=== PATIENT | female | born 1990 | race Caucasian/White ===

== ENCOUNTER 2017-10-11 19:13 | Emergency (ER) | payer BC, OTHER ==
[2017-10-11] MEDS ORDERED: Ketorolac 60 MG/2 ML SDV IM ONE (19:26)
--- NOTE | 2017-10-11 19:29 | EDM.PDOC ---
ED HPI GENERAL MEDICAL PROBLEM - General Chief Complaint: Back Pain or Injury Stated Complaint: LOWER BACK PAIN/FALL Time Seen by Provider: 10/11/17 19:23 - History of Present Illness INITIAL COMMENTS - FREE TEXT/NARRATIVE: HISTORY AND PHYSICAL: History of present illness: The patient is a 27-year-old female who was in her usual state of good health without any systemic complaints when she slipped on the ice at about 2:00 this afternoon and fell onto her buttocks. She said she hit her head but did not pass out or black out and has no head neck or upper back pain but complains of pain at her tailbone and she is worried that it's broken. She has no radiation of the pain into her legs and has had no bowel or bladder disturbances since his injury. She has no other complaints and took Tylenol prior to coming here. The pain does not localize right or left but it is in the midline. She has not noticed any bruising to the area. Review of systems: As per history of present illness and below otherwise all systems reviewed and negative. Past medical history: As per history of present illness and as reviewed below otherwise noncontributory. Surgical history: As per history of present illness and as reviewed below otherwise noncontributory. Social history: No reported history of drug or alcohol abuse. Family history: As per history of present illness and as reviewed below otherwise noncontributory. Physical exam: Gen.: Well-developed overweight female who is nontoxic and vital signs are reviewed by me. She is uncomfortable sitting in the chair easily and ambulates easily in the ED. HEENT: Atraumatic, normocephalic, negative for conjunctival pallor or scleral icterus, mucous membranes moist, throat clear, neck supple, nontender, trachea midline. Lungs: Clear to auscultation, breath sounds equal bilaterally, chest nontender. Heart: S1S2, regular rate and rhythm no overt murmurs Abdomen: Soft, nondistended, nontender. NABS Negative for costovertebral tenderness. Pelvis: Stable nontender. There is no specific posterior pelvis pain or SI joint pain on palpation Genitourinary: Deferred. Rectal: Deferred. Extremities: Atraumatic, negative for cords or calf pain. Neurovascular unremarkable. Full range of motion without defects or deficits Neuro: Awake, alert, oriented. Cranial nerves II through XII unremarkable. Cerebellum unremarkable. Motor and sensory unremarkable throughout. Exam nonfocal. Back: There are no midline step-offs tenderness or defects of the thoracic or lumbar spine but there is specific tenderness at palpation of the coccygeal area without localization right or left. There is no overt bruising erythema or ecchymosis appreciated. Diagnostics: X-ray sacrum and coccyx Therapeutics: Toradol Impression: Fall, coccyx contusion Definitive disposition and diagnosis as appropriate pending reevaluation and review of above. tailbone Pain Score (Numeric/FACES): 7 - Related Data Allergies Allergy/AdvReac Type Severity Reaction Status Date / Time Penicillins Allergy Other Verified 08/11/16 21:07 Home Meds: Home Meds Desogestrel-Ethinyl Estradiol [Apri 28 Day Tablet] 1 each PO DAILY 07/06/16 [ History] FLUoxetine [PROzac] 40 mg PO DAILY 07/06/16 [History] Omeprazole 20 mg PO DAILY 07/06/16 [History] LORazepam [Ativan] 0.5 mg PO ASDIRECTED PRN 10/11/17 [History] Past Medical History HEENT History: Reports: None Cardiovascular History: Reports: None Respiratory History: Reports: None Gastrointestinal History: Reports: GERD Genitourinary History: Reports: Renal Calculus 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 Musculoskeletal History: Reports: None Neurological History: Reports: Migraines Psychiatric History: Reports: Depression Endocrine/Metabolic History: Reports: Obesity/BMI 30+ Hematologic History: Reports: None Immunologic History: Reports: None Oncologic (Cancer) History: Reports: None Dermatologic History: Reports: None - Infectious Disease History Infectious Disease History: Reports: None - Past Surgical History Head Surgeries/Procedures: Reports: None HEENT Surgical History: Reports: Tonsillectomy Cardiovascular Surgical History: Reports: None Musculoskeletal Surgical History: Reports: None Social & Family History - Family History Family Medical History: Noncontributory Oncologic: Reports: Breast - Tobacco Use Smoking Status *Q: Current Every Day Smoker Years of Tobacco use: 2 Packs/Tins Daily: 0.5 - Caffeine Use Caffeine Use: Reports: Tea - Recreational Drug Use Recreational Drug Use: No ED ROS GENERAL - Review of Systems Review Of Systems: ROS reveals no pertinent complaints other than HPI. ED EXAM, GENERAL - Physical Exam Exam: See Below (See dictation) Course - Vital Signs Last Recorded V/S: Last Vital Signs Temp 36.5 C 10/11/17 19:23 Pulse 101 H 10/11/17 19:23 Resp 16 10/11/17 19:23 BP 118/71 10/11/17 19:23 Pulse Ox 95 10/11/17 19:23 - Orders/Labs/Meds Orders: Active Orders 24 hr Category Date Time Status Sacrum Coccyx Min 2V [CR] Stat Exams 10/11/17 19:26 Taken Meds: Medications Discontinued Medications Generic Name Dose Route Start Last Admin Trade Name Benjamin PRN Reason Stop Dose Admin Ketorolac Tromethamine 60 mg 10/11/17 19:26 10/11/17 19:50 Toradol IM 10/11/17 19:27 60 mg ONETIME ONE Administration Departure - Departure Time of Disposition: 20:34 Disposition: Home, Self-Care 01 Condition: Good Clinical Impression: Fall Qualifiers: Encounter type: initial encounter Qualified Code(s): W19.XXXA - Unspecified fall, initial encounter Coccyx contusion Qualifiers: Encounter type: initial encounter Qualified Code(s): S30.0XXA - Contusion of lower back and pelvis, initial encounter - Discharge Information Referrals: Alexandrea Melendrez NP [Primary Care Provider] - Forms: ED Department Discharge Additional Instructions: The following information is given to patients seen in the emergency department who are being discharged to home. This information is to outline your options for follow-up care. We provide all patients seen in our emergency department with a follow-up referral. The need for follow-up, as well as the timing and circumstances, are variable depending upon the specifics of your emergency department visit. If you don't have a primary care physician on staff, we will provide you with a referral. We always advise you to contact your personal physician following an emergency department visit to inform them of the circumstance of the visit and for follow-up with them and/or the need for any referrals to a consulting specialist. The emergency department will also refer you to a specialist when appropriate. This referral assures that you have the opportunity for followup care with a specialist. All of these measure are taken in an effort to provide you with optimal care, which includes your followup. Under all circumstances we always encourage you to contact your private physician who remains a resource for coordinating your care. When calling for followup care, please make the office aware that this follow-up is from your recent emergency room visit. If for any reason you are refused follow-up, please contact the [facility] emergency department at and ask to speak to the emergency department charge nurse. [facility] Primary care- Internal Medicine and Family [address] [address] Use ice to area and try to avoid pressure to the region. Please take stool softeners as sitting on the toilet may be discomforting. Use pain medication as directed and prescribed and you may also add [id number] ibuprofen/Motrin. Call and follow-up in the clinic with either your provider or one of our providers in the next few days for reevaluation further care and return to ER as needed and as discussed - My Orders Last 24 Hours: My Active Orders 10/11/17 19:26 Sacrum Coccyx Min 2V [CR] Stat - Assessment/Plan Last 24 Hours: My Active Orders 10/11/17 19:26 Sacrum Coccyx Min 2V [CR] Stat
[2017-10-11 20:48] VITALS: BP 119/61
--- NOTE | 2017-10-14 10:42 | CR ---
EXAM DATE: 10/11/17 PATIENT'S AGE: 27 Patient: GAY BRAGG Facility: [place], [place] Site . Site : 1990 Study: XRay Spine Sacrum/Coccyx [id number]/9/2018 8:03:46 PM Ordering Physician: Dalia Uriostegui Final Report: INDICATION: Pain after fall on ice. COMPARISON: None. FINDINGS/IMPRESSION: No fractures of the sacrum or coccyx identified. Included bony pelvis appears intact. Sacroiliac joints are unremarkable. Dictated by Marcial Fischer MD @ 10/11/2017 8:09:20 PM Dictated by: Marcial Fischer MD @ 10/11/2017 20:10:10 (Electronic Signature) Report Signed by Proxy. [facility]
== END 2017-10-11 20:45 | disposition home or self-care (01) ==
LOC: MW.ED 19:13
DX: S30.0XXA Contusion of lower back and pelvis, initial encounter (principal); F17.210 Nicotine dependence, cigarettes, uncomplicated; K21.9 Gastro-esophageal reflux disease without esophagitis; F32.9 Major depressive disorder, single episode, unspecified; Z79.899 Other long term (current) drug therapy; Z88.0 Allergy status to penicillin; W00.0XXA Fall on same level due to ice and snow, initial encounter
CPT/HCPCS: 72220; 96372; 99283; J1885

== ENCOUNTER 2018-01-15 15:25 | Emergency (ER) | payer BC ==
[2018-01-15] MEDS ORDERED: Sodium Chloride 0.9% 1,000 ML IV ONE (15:46)
[2018-01-15] MEDS ORDERED: Albuterol/Ipratropium 3.0-0.5 MG/3 ML Neb Soln NEB ONE (15:58)
[2018-01-15] MEDS ORDERED: methylPREDNISolone Sodium Succinate 125 MG/2 ML SDV IVPUSH ONE (15:58)
--- NOTE | 2018-01-15 15:59 | EDM.PDOC ---
ED HPI GENERAL MEDICAL PROBLEM - General Chief Complaint: General Stated Complaint: HARD TIME BREATHING AND DIZZY Time Seen by Provider: 01/15/18 15:45 Source of Information: Reports: Patient History Limitations: Reports: No Limitations - History of Present Illness INITIAL COMMENTS - FREE TEXT/NARRATIVE: HISTORY AND PHYSICAL: History of present illness: Patient is a 27-year-old female who presents to the emergency room today with complaints of shortness of breath, "lung pain", sinus pressure and dizziness. She states she has had these symptoms intermittently over the past month. She has been on Bactrim DS and 2 rounds of Z-Obie without any relief. He eats with her dizziness it is sporadic and is not associated with movement or rest. She denies any fever, chills, chest pain, abdominal pain, nausea, vomiting, diarrhea or constipation. Review of systems: As per history of present illness and below otherwise all systems reviewed and negative. Past medical history: As per history of present illness and as reviewed below otherwise noncontributory. Surgical history: As per history of present illness and as reviewed below otherwise noncontributory. Social history: No reported history of drug or alcohol abuse. Family history: As per history of present illness and as reviewed below otherwise noncontributory. Physical exam: General: Well-developed and well-nourished 27-year-old female. Alert and oriented. Nontoxic appearing and in no acute distress. HEENT: Atraumatic, normocephalic, pupils equal and reactive bilaterally, negative for conjunctival pallor or scleral icterus, mucous membranes moist, throat clear, neck supple, nontender, trachea midline. Frontal/maxillary sinus tenderness with palpation bilaterally. No drooling or trismus noted. No meningeal signs Lungs: Clear to auscultation, breath sounds equal bilaterally, chest nontender. Heart: S1S2, regular rate and rhythm without overt murmur Abdomen: Soft, nondistended, nontender. Negative for masses or hepatosplenomegaly. Negative for costovertebral tenderness. Pelvis: Stable nontender. Genitourinary: Deferred. Rectal: Deferred. Skin: Intact, warm, dry. No lesions or rashes noted. Extremities: Atraumatic, negative for cords or calf pain. Neurovascular unremarkable. Neuro: Awake, alert, oriented. Cranial nerves II through XII unremarkable. Cerebellum unremarkable. Motor and sensory unremarkable throughout. Exam nonfocal. Notes: Routine lab work will be obtained today along with EKG and chest x-ray. Chest x-ray shows no acute pulmonary disease. Lab work is unremarkable with a slightly elevated WBC. Will treat her with doxycycline, Medrol Dosepak and albuterol inhaler for sinusitis and bronchitis. Encouraged her to increase her oral fluids. Supportive care measures were reviewed and discussed. She voices understanding and is agreeable to plan of care. She denies any further questions at this Diagnostics: CBC, CMP, UA, urine , chest x-ray, orthostatic vital signs Therapeutics: The fluid, Solu-Medrol, DuoNeb Impression: Bronchitis Sinusitis Dizziness Plan: 1. Please take your medications as directed. 2. Increase your oral fluids (non-caffienated fluids), especially over the next 1-2 days. You may use [id number] meclizine as needed for dizziness. 3. Follow-up with your primary care provider in the next 1-2 days. Return to the ED as needed and as discussed. Definitive disposition and diagnosis as appropriate pending reevaluation and review of above. Face Pain Score (Numeric/FACES): 6 - Related Data Allergies Allergy/AdvReac Type Severity Reaction Status Date / Time Penicillins Allergy Other Verified 01/15/18 15:45 Home Meds: Home Meds Desogestrel-Ethinyl Estradiol [Apri 28 Day Tablet] 1 each PO DAILY 07/06/16 [ History] FLUoxetine [PROzac] 40 mg PO DAILY 07/06/16 [History] Omeprazole 20 mg PO DAILY 07/06/16 [History] LORazepam [Ativan] 0.5 mg PO ASDIRECTED PRN 10/11/17 [History] Albuterol [Proventil HFA] 2 puff INH Q4H PRN 01/15/18 [History] Past Medical History HEENT History: Reports: None Cardiovascular History: Reports: None Respiratory History: Reports: None Gastrointestinal History: Reports: GERD Genitourinary History: Reports: Renal Calculus 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 Musculoskeletal History: Reports: None Neurological History: Reports: Migraines Psychiatric History: Reports: Depression Endocrine/Metabolic History: Reports: Obesity/BMI 30+ Hematologic History: Reports: None Immunologic History: Reports: None Oncologic (Cancer) History: Reports: None Dermatologic History: Reports: None - Infectious Disease History Infectious Disease History: Reports: None - Past Surgical History Head Surgeries/Procedures: Reports: None HEENT Surgical History: Reports: Tonsillectomy Cardiovascular Surgical History: Reports: None Musculoskeletal Surgical History: Reports: None Social & Family History - Family History Family Medical History: Noncontributory Oncologic: Reports: Breast - Tobacco Use Smoking Status *Q: Current Every Day Smoker Years of Tobacco use: 18 Packs/Tins Daily: 0.2 - Caffeine Use Caffeine Use: Reports: Coffee, Soda, Tea - Recreational Drug Use Recreational Drug Use: No ED ROS GENERAL - Review of Systems Review Of Systems: ROS reveals no pertinent complaints other than HPI. ED EXAM, GENERAL - Physical Exam Exam: See Below (See dictation) Course - Vital Signs Last Recorded V/S: Last Vital Signs Temp 97.2 F 01/15/18 15:47 Pulse 99 01/15/18 15:47 Resp 18 01/15/18 15:47 BP 153/73 H 01/15/18 15:47 Pulse Ox 98 01/15/18 15:47 Orthostatic Blood Pressure [ 137/66 Standing] Orthostatic Blood Pressure [ 163/86 Sitting] Orthostatic Blood Pressure [ 163/77 Supine] - Orders/Labs/Meds Orders: Active Orders 24 hr Category Date Time Status Orthostatic Vital Signs [RC] ASDIRECTED Care 01/15/18 15:46 Active RT Aerosol Therapy [RC] ASDIRECTED Care 01/15/18 15:58 Active Chest 2V [CR] Stat Exams 01/15/18 15:58 Taken HCG QUALITATIVE,URINE [URCHEM] Stat Lab 01/15/18 17:30 Ordered UA W/MICROSCOPIC [URIN] Stat Lab 01/15/18 17:30 Ordered Labs: Laboratory Tests 01/15/18 01/15/18 01/15/18 Range/Units 16:05 16:05 17:30 WBC 11.79 H (4.0-11.0) K/uL RBC 4.52 (4.30-5.90) M/uL Hgb 13.0 (12.0-16.0) g/dL Hct 40.1 (36.0-46.0) % MCV 88.7 (80.0-98.0) fL MCH 28.8 (27.0-32.0) pg MCHC 32.4 (31.0-37.0) g/dL RDW Std Deviation 45.0 (28.0-62.0) fl RDW Coeff of Eda 14 (11.0-15.0) % Plt Count 271 (150-400) K/uL MPV 9.40 (7.40-12.00) fL Neut % (Auto) 73.8 (48.0-80.0) % Lymph % (Auto) 20.9 (16.0-40.0) % [place] % (Auto) 4.6 (0.0-15.0) % Eos % (Auto) 0.4 (0.0-7.0) % Baso % (Auto) 0.3 (0.0-1.5) % Neut # (Auto) 8.7 H (1.4-5.7) K/uL Lymph # (Auto) 2.5 H (0.6-2.4) K/uL [place] # (Auto) 0.5 (0.0-0.8) K/uL Eos # (Auto) 0.1 (0.0-0.7) K/uL Baso # (Auto) 0.0 (0.0-0.1) K/uL Nucleated RBC % 0.0 /100WBC Nucleated RBCs # 0 K/uL Sodium 140 (136-145) mmol/L Potassium 3.7 (3.5-5.1) mmol/L Chloride 104 (98-107) mmol/L Carbon Dioxide 23.5 (21.0-32.0) mmol/L BUN 14 (7.0-18.0) mg/dL Creatinine 0.9 (0.6-1.0) mg/dL Est Cr Clr Drug Dosing 72.95 mL/min Estimated GFR (MDRD) > 60.0 ml/min Glucose 150 H (74-106) mg/dL Calcium 8.5 (8.5-10.1) mg/dL Total Bilirubin 0.2 (0.2-1.0) mg/dL AST 14 L (15-37) IU/L ALT 20 (14-63) IU/L Alkaline Phosphatase 80 (46-116) U/L Total Protein 7.6 (6.4-8.2) g/dL Albumin 3.6 (3.4-5.0) g/dL Globulin 4.0 H (2.0-3.5) g/dL Albumin/Globulin Ratio 0.9 L (1.3-2.8) Urine Color YELLOW Urine Appearance CLEAR Urine pH 6.0 (5.0-8.0) Ur Specific [place] >= 1.030 (1.001-1.035) Urine Protein NEGATIVE (NEGATIVE) mg/dL Urine Glucose (UA) NEGATIVE (NEGATIVE) mg/dL Urine Ketones NEGATIVE (NEGATIVE) mg/dL Urine Occult Blood NEGATIVE (NEGATIVE) Urine Nitrite NEGATIVE (NEGATIVE) Urine Bilirubin NEGATIVE (NEGATIVE) Urine Urobilinogen 0.2 (<2.0) EU/dL Ur Leukocyte Esterase TRACE (NEGATIVE) Urine RBC 0-1 (0-2/HPF) Urine WBC 2-3 (0-5/HPF) Ur Epithelial Cells FEW (NONE-FEW) Urine Bacteria FEW (NEGATIVE) Urine HCG, Qual (NEGATIVE) 01/15/18 Range/Units 17:30 WBC (4.0-11.0) K/uL RBC (4.30-5.90) M/uL Hgb (12.0-16.0) g/dL Hct (36.0-46.0) % MCV (80.0-98.0) fL MCH (27.0-32.0) pg MCHC (31.0-37.0) g/dL RDW Std Deviation (28.0-62.0) fl RDW Coeff of Eda (11.0-15.0) % Plt Count (150-400) K/uL MPV (7.40-12.00) fL Neut % (Auto) (48.0-80.0) % Lymph % (Auto) (16.0-40.0) % [place] % (Auto) (0.0-15.0) % Eos % (Auto) (0.0-7.0) % Baso % (Auto) (0.0-1.5) % Neut # (Auto) (1.4-5.7) K/uL Lymph # (Auto) (0.6-2.4) K/uL [place] # (Auto) (0.0-0.8) K/uL Eos # (Auto) (0.0-0.7) K/uL Baso # (Auto) (0.0-0.1) K/uL Nucleated RBC % /100WBC Nucleated RBCs # K/uL Sodium (136-145) mmol/L Potassium (3.5-5.1) mmol/L Chloride (98-107) mmol/L Carbon Dioxide (21.0-32.0) mmol/L BUN (7.0-18.0) mg/dL Creatinine (0.6-1.0) mg/dL Est Cr Clr Drug Dosing mL/min Estimated GFR (MDRD) ml/min Glucose (74-106) mg/dL Calcium (8.5-10.1) mg/dL Total Bilirubin (0.2-1.0) mg/dL AST (15-37) IU/L ALT (14-63) IU/L Alkaline Phosphatase (46-116) U/L Total Protein (6.4-8.2) g/dL Albumin (3.4-5.0) g/dL Globulin (2.0-3.5) g/dL Albumin/Globulin Ratio (1.3-2.8) Urine Color Urine Appearance Urine pH (5.0-8.0) Ur Specific [place] (1.001-1.035) Urine Protein (NEGATIVE) mg/dL Urine Glucose (UA) (NEGATIVE) mg/dL Urine Ketones (NEGATIVE) mg/dL Urine Occult Blood (NEGATIVE) Urine Nitrite (NEGATIVE) Urine Bilirubin (NEGATIVE) Urine Urobilinogen (<2.0) EU/dL Ur Leukocyte Esterase (NEGATIVE) Urine RBC (0-2/HPF) Urine WBC (0-5/HPF) Ur Epithelial Cells (NONE-FEW) Urine Bacteria (NEGATIVE) Urine HCG, Qual NEGATIVE (NEGATIVE) Meds: Medications Discontinued Medications Generic Name Dose Route Start Last Admin Trade Name Freq PRN Reason Stop Dose Admin Albuterol/Ipratropium 3 ml 01/15/18 15:58 01/15/18 16:04 Duoneb 3.0-0.5 Mg/3 Ml NEB 01/15/18 15:59 3 ml ONETIME ONE Administration Sodium Chloride 1,000 mls @ 999 mls/hr 01/15/18 15:46 01/15/18 16:02 Normal Saline IV 01/15/18 16:46 999 mls/hr STAT ONE Administration Methylprednisolone Sodium Succinate 125 mg 01/15/18 15:58 01/15/18 16:04 Solu-Medrol IVPUSH 01/15/18 15:59 125 mg ONETIME ONE Administration Departure - Departure Time of Disposition: 18:02 Disposition: Home, Self-Care 01 Clinical Impression: Dizziness, Bronchitis Sinusitis Qualifiers: Sinusitis location: maxillary Chronicity: acute Recurrence: non-recurrent Qualified Code(s): J01.00 - Acute maxillary sinusitis, unspecified - Discharge Information Referrals: PCP,None [Primary Care Provider] - Forms: ED Department Discharge Additional Instructions: The following information is given to patients seen in the emergency department who are being discharged to home. This information is to outline your options for follow-up care. We provide all patients seen in our emergency department with a follow-up referral. The need for follow-up, as well as the timing and circumstances, are variable depending upon the specifics of your emergency department visit. If you don't have a primary care physician on staff, we will provide you with a referral. We always advise you to contact your personal physician following an emergency department visit to inform them of the circumstance of the visit and for follow-up with them and/or the need for any referrals to a consulting specialist. The emergency department will also refer you to a specialist when appropriate. This referral assures that you have the opportunity for follow-up care with a specialist. All of these measure are taken in an effort to provide you with optimal care, which includes your follow-up. Under all circumstances we always encourage you to contact your private physician who remains a resource for coordinating your care. When calling for follow-up care, please make the office aware that this follow-up is from your recent emergency room visit. If for any reason you are refused follow-up, please contact the [facility] Emergency Department at and asked to speak to the emergency department charge nurse. [facility] Primary Care [address] [place] [id number] 1. Please take your medications as directed. 2. Increase your oral fluids (non-caffienated fluids), especially over the next 1-2 days. You may use [id number] meclizine as needed for dizziness. 3. Follow-up with your primary care provider in the next 1-2 days. Return to the ED as needed and as discussed. - My Orders Last 24 Hours: My Active Orders 01/15/18 15:46 Orthostatic Vital Signs [RC] ASDIRECTED 01/15/18 15:58 RT Aerosol Therapy [RC] ASDIRECTED Chest 2V [CR] Stat 01/15/18 17:30 HCG QUALITATIVE,URINE [URCHEM] Stat UA W/MICROSCOPIC [URIN] Stat - Assessment/Plan Last 24 Hours: My Active Orders 01/15/18 15:46 Orthostatic Vital Signs [RC] ASDIRECTED 01/15/18 15:58 RT Aerosol Therapy [RC] ASDIRECTED Chest 2V [CR] Stat 01/15/18 17:30 HCG QUALITATIVE,URINE [URCHEM] Stat UA W/MICROSCOPIC [URIN] Stat
[2018-01-15 16:33] LABS: CHLORIDE,CL 104 mmol/L (98-107); SODIUM,NA 140 mmol/L (136-145)
[2018-01-15 18:47] VITALS: BP 148/85
--- NOTE | 2018-01-16 08:17 | CR ---
EXAM DATE: 01/15/18 PATIENT'S AGE: 27 Patient: GAY BRAGG Facility: [place], [place] Site . Site : 1990 Study: XRay Chest [id number]/13/2018 5:49:41 PM Ordering Physician: Doctor Reyes Final Report: INDICATION: chest pain, sob TECHNIQUE: Chest 2 views COMPARISON: None FINDINGS: Cardiovascular and mediastinum: Heart size and vasculature are normal in caliber and appearance. Mediastinum is within normal limits. Lungs and pleural spaces: No focal consolidation. No sign of pleural effusion. No pneumothorax. Bones and soft tissues: No significant findings. IMPRESSION: No acute cardiopulmonary disease. Dictated by Uday Charlton MD @ 01/15/2018 5:54:48 PM Dictated by: Uday Charlton MD @ 01/15/2018 17:54:55 (Electronic Signature) Report Signed by Proxy. [facility]
== END 2018-01-15 18:30 | disposition home or self-care (01) ==
LOC: MW.ED 15:25
DX: J40 Bronchitis, not specified as acute or chronic (principal); J01.00 Acute maxillary sinusitis, unspecified; R42 Dizziness and giddiness; E66.9 Obesity, unspecified; F17.210 Nicotine dependence, cigarettes, uncomplicated; Z88.0 Allergy status to penicillin; Z79.899 Other long term (current) drug therapy
CPT/HCPCS: 36415; 71046; 80053; 81001; 81025; 85025; 94640; 96361; 96374; 99285; J2930; J7040; 99283

== ENCOUNTER 2018-01-29 08:55 | Emergency (ER) | payer BC ==
--- NOTE | 2018-01-29 09:02 | EDM.PDOC ---
ED HPI GENERAL MEDICAL PROBLEM - General Stated Complaint: DIZZY Time Seen by Provider: 01/29/18 09:00 Source of Information: Reports: Patient History Limitations: Reports: No Limitations - History of Present Illness INITIAL COMMENTS - FREE TEXT/NARRATIVE: History of present illness: []Patient woke up this morning feeling dizzy with a spinning sensation mild nausea no vomiting. She had bronchitis a month ago and completed antibiotics other than that she has no change in her medications. She denies any fever, shortness of breath chest or abdominal pain, visual changes . She has a mild headache which is not unusual. Patient went to work and noticed when she looked down a piece of paper the dizziness worsened. Review of systems: As per history of present illness and below otherwise all systems reviewed and negative. Past medical history: As per history of present illness and as reviewed below otherwise noncontributory. Surgical history: As per history of present illness and as reviewed below otherwise noncontributory. Social history: No reported history of drug or alcohol abuse. Family history: As per history of present illness and as reviewed below otherwise noncontributory. Physical exam: General: Well developed, well nourished in NAD HEENT: Atraumatic, normocephalic, pupils reactive, negative for conjunctival pallor or scleral icterus, mucous membranes moist, throat clear, neck supple, nontender, trachea midline. Lungs: Clear to auscultation, breath sounds equal bilaterally, chest nontender. Heart: S1S2, regular, negative for clicks, rubs, or JVD. Abdomen: Soft, nondistended, nontender. Negative for masses or hepatosplenomegaly. Negative for costovertebral tenderness. Pelvis: Stable nontender. Genitourinary: Deferred. Rectal: Deferred. Extremities: Atraumatic, negative for cords or calf pain. Neurovascular unremarkable. Neuro: Awake, alert, oriented. Cranial nerves II through XII unremarkable. Cerebellum unremarkable. Motor and sensory unremarkable throughout. Exam nonfocal. Diagnostics: []CBC normal chemistry normal except for elevated glucose of 149, UA test are negative Therapeutics: []Meclizine or to arrival and Zofran Impression: []Benign positional vertigo Plan: []Continue meclizine every 8 hours follow up with primary care for diabetes workup. Definitive disposition and diagnosis as appropriate pending reevaluation and review of above. - Related Data Allergies Allergy/AdvReac Type Severity Reaction Status Date / Time Penicillins Allergy Other Verified 01/29/18 09:05 Home Meds: Home Meds Desogestrel-Ethinyl Estradiol [Apri 28 Day Tablet] 1 each PO DAILY 07/06/16 [ History] FLUoxetine [PROzac] 20 mg PO DAILY 07/06/16 [History] Omeprazole 20 mg PO DAILY 07/06/16 [History] LORazepam [Ativan] 0.5 mg PO ASDIRECTED PRN 10/11/17 [History] Albuterol [Proventil HFA] 2 puff INH Q4H PRN 01/15/18 [History] Past Medical History HEENT History: Reports: None Cardiovascular History: Reports: None Respiratory History: Reports: None Gastrointestinal History: Reports: GERD Genitourinary History: Reports: Renal Calculus 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 Musculoskeletal History: Reports: None Neurological History: Reports: Migraines Psychiatric History: Reports: Depression Endocrine/Metabolic History: Reports: Obesity/BMI 30+ Hematologic History: Reports: None Immunologic History: Reports: None Oncologic (Cancer) History: Reports: None Dermatologic History: Reports: None - Infectious Disease History Infectious Disease History: Reports: None - Past Surgical History Head Surgeries/Procedures: Reports: None HEENT Surgical History: Reports: Tonsillectomy Cardiovascular Surgical History: Reports: None Musculoskeletal Surgical History: Reports: None Social & Family History - Family History Family Medical History: Noncontributory Oncologic: Reports: Breast - Caffeine Use Caffeine Use: Reports: Coffee, Soda, Tea ED ROS GENERAL - Review of Systems Review Of Systems: See Below (See history of present illness) ED EXAM, DIZZINESS - Physical Exam Exam: See Below (See history of present illness) Course - Vital Signs Last Recorded V/S: Last Vital Signs Temp 97.3 F 01/29/18 09:06 Pulse 102 H 01/29/18 10:40 Resp 20 01/29/18 09:06 BP 154/70 H 01/29/18 10:40 Pulse Ox 98 01/29/18 09:06 - Orders/Labs/Meds Orders: Active Orders 24 hr Category Date Time Status HCG QUALITATIVE,URINE [URCHEM] Stat Lab 01/29/18 09:26 Ordered UA W/MICROSCOPIC [URIN] Stat Lab 01/29/18 09:15 Ordered Labs: Laboratory Tests 01/29/18 01/29/18 01/29/18 Range/Units 09:06 09:15 09:26 WBC (4.0-11.0) K/uL RBC (4.30-5.90) M/uL Hgb (12.0-16.0) g/dL Hct (36.0-46.0) % MCV (80.0-98.0) fL MCH (27.0-32.0) pg MCHC (31.0-37.0) g/dL RDW Std Deviation (28.0-62.0) fl RDW Coeff of Eda (11.0-15.0) % Plt Count (150-400) K/uL MPV (7.40-12.00) fL Neut % (Auto) (48.0-80.0) % Lymph % (Auto) (16.0-40.0) % [place] % (Auto) (0.0-15.0) % Eos % (Auto) (0.0-7.0) % Baso % (Auto) (0.0-1.5) % Neut # (Auto) (1.4-5.7) K/uL Lymph # (Auto) (0.6-2.4) K/uL [place] # (Auto) (0.0-0.8) K/uL Eos # (Auto) (0.0-0.7) K/uL Baso # (Auto) (0.0-0.1) K/uL Nucleated RBC % /100WBC Nucleated RBCs # K/uL Sodium (136-145) mmol/L Potassium (3.5-5.1) mmol/L Chloride (98-107) mmol/L Carbon Dioxide (21.0-32.0) mmol/L BUN (7.0-18.0) mg/dL Creatinine (0.6-1.0) mg/dL Est Cr Clr Drug Dosing Estimated GFR (MDRD) ml/min Glucose (74-106) mg/dL POC Glucose 149 H (60-110) mg/dL Calcium (8.5-10.1) mg/dL Total Bilirubin (0.2-1.0) mg/dL AST (15-37) IU/L ALT (14-63) IU/L Alkaline Phosphatase (46-116) U/L Total Protein (6.4-8.2) g/dL Albumin (3.4-5.0) g/dL Globulin (2.0-3.5) g/dL Albumin/Globulin Ratio (1.3-2.8) Urine Color YELLOW Urine Appearance CLEAR Urine pH 6.0 (5.0-8.0) Ur Specific [place] 1.015 (1.001-1.035) Urine Protein NEGATIVE (NEGATIVE) mg/dL Urine Glucose (UA) NEGATIVE (NEGATIVE) mg/dL Urine Ketones NEGATIVE (NEGATIVE) mg/dL Urine Occult Blood TRACE-INTACT (NEGATIVE) Urine Nitrite NEGATIVE (NEGATIVE) Urine Bilirubin NEGATIVE (NEGATIVE) Urine Urobilinogen 0.2 (<2.0) EU/dL Ur Leukocyte Esterase NEGATIVE (NEGATIVE) Urine RBC 0-1 (0-2/HPF) Urine WBC 0-1 (0-5/HPF) Ur Epithelial Cells RARE (NONE-FEW) Amorphous Sediment RARE (NEGATIVE) Urine Bacteria RARE (NEGATIVE) Urine HCG, Qual NEGATIVE (NEGATIVE) 01/29/18 01/29/18 Range/Units 09:50 09:50 WBC 10.02 (4.0-11.0) K/uL RBC 4.61 (4.30-5.90) M/uL Hgb 13.3 (12.0-16.0) g/dL Hct 41.2 (36.0-46.0) % MCV 89.4 (80.0-98.0) fL MCH 28.9 (27.0-32.0) pg MCHC 32.3 (31.0-37.0) g/dL RDW Std Deviation 45.9 (28.0-62.0) fl RDW Coeff of Eda 14 (11.0-15.0) % Plt Count 255 (150-400) K/uL MPV 9.60 (7.40-12.00) fL Neut % (Auto) 74.8 (48.0-80.0) % Lymph % (Auto) 19.5 (16.0-40.0) % [place] % (Auto) 4.5 (0.0-15.0) % Eos % (Auto) 0.8 (0.0-7.0) % Baso % (Auto) 0.4 (0.0-1.5) % Neut # (Auto) 7.5 H (1.4-5.7) K/uL Lymph # (Auto) 2.0 (0.6-2.4) K/uL [place] # (Auto) 0.5 (0.0-0.8) K/uL Eos # (Auto) 0.1 (0.0-0.7) K/uL Baso # (Auto) 0.0 (0.0-0.1) K/uL Nucleated RBC % 0.0 /100WBC Nucleated RBCs # 0 K/uL Sodium 139 (136-145) mmol/L Potassium 4.4 (3.5-5.1) mmol/L Chloride 104 (98-107) mmol/L Carbon Dioxide 25.8 (21.0-32.0) mmol/L BUN 11 (7.0-18.0) mg/dL Creatinine 0.7 (0.6-1.0) mg/dL Est Cr Clr Drug Dosing TNP Estimated GFR (MDRD) > 60.0 ml/min Glucose 134 H (74-106) mg/dL POC Glucose (60-110) mg/dL Calcium 8.6 (8.5-10.1) mg/dL Total Bilirubin 0.1 L (0.2-1.0) mg/dL AST 17 (15-37) IU/L ALT 30 (14-63) IU/L Alkaline Phosphatase 90 (46-116) U/L Total Protein 7.4 (6.4-8.2) g/dL Albumin 3.4 (3.4-5.0) g/dL Globulin 4.0 H (2.0-3.5) g/dL Albumin/Globulin Ratio 0.9 L (1.3-2.8) Urine Color Urine Appearance Urine pH (5.0-8.0) Ur Specific [place] (1.001-1.035) Urine Protein (NEGATIVE) mg/dL Urine Glucose (UA) (NEGATIVE) mg/dL Urine Ketones (NEGATIVE) mg/dL Urine Occult Blood (NEGATIVE) Urine Nitrite (NEGATIVE) Urine Bilirubin (NEGATIVE) Urine Urobilinogen (<2.0) EU/dL Ur Leukocyte Esterase (NEGATIVE) Urine RBC (0-2/HPF) Urine WBC (0-5/HPF) Ur Epithelial Cells (NONE-FEW) Amorphous Sediment (NEGATIVE) Urine Bacteria (NEGATIVE) Urine HCG, Qual (NEGATIVE) Meds: Medications Discontinued Medications Generic Name Dose Route Start Last Admin Trade Name Benjamin PRN Reason Stop Dose Admin Ondansetron HCl 4 mg 01/29/18 09:20 01/29/18 09:25 Zofran Odt PO 01/29/18 09:21 4 mg ONETIME ONE Administration Departure - Departure Time of Disposition: 10:45 Disposition: Home, Self-Care 01 Condition: Good Clinical Impression: Elevated glucose Benign positional vertigo Qualifiers: Laterality: unspecified laterality Qualified Code(s): H81.10 - Benign paroxysmal vertigo, unspecified ear - Discharge Information Referrals: PCP,None [Primary Care Provider] - Additional Instructions: The following information is given to patients seen in the emergency department who are being discharged to home. This information is to outline your options for follow-up care. We provide all patients seen in our emergency department with a follow-up referral. The need for follow-up, as well as the timing and circumstances, are variable depending upon the specifics of your emergency department visit. If you don't have a primary care physician on staff, we will provide you with a referral. We always advise you to contact your personal physician following an emergency department visit to inform them of the circumstance of the visit and for follow-up with them and/or the need for any referrals to a consulting specialist. The emergency department will also refer you to a specialist when appropriate. This referral assures that you have the opportunity for follow-up care with a specialist. All of these measure are taken in an effort to provide you with optimal care, which includes your follow-up. Under all circumstances we always encourage you to contact your private physician who remains a resource for coordinating your care. When calling for follow-up care, please make the office aware that this follow-up is from your recent emergency room visit. If for any reason you are refused follow-up, please contact the [facility] Emergency Department at and asked to speak to the emergency department charge nurse. [facility] [address] [place] [id number] - My Orders Last 24 Hours: My Active Orders 01/29/18 09:15 UA W/MICROSCOPIC [URIN] Stat 01/29/18 09:26 HCG QUALITATIVE,URINE [URCHEM] Stat - Assessment/Plan Last 24 Hours: My Active Orders 01/29/18 09:15 UA W/MICROSCOPIC [URIN] Stat 01/29/18 09:26 HCG QUALITATIVE,URINE [URCHEM] Stat
[2018-01-29] MEDS ORDERED: Ondansetron 4 MG Tab.DIS PO ONE (09:20)
[2018-01-29 10:24] LABS: CHLORIDE,CL 104 mmol/L (98-107); SODIUM,NA 139 mmol/L (136-145)
[2018-01-29 10:59] VITALS: BP 131/86
== END 2018-01-29 11:00 | disposition home or self-care (01) ==
LOC: MW.ED 08:55
DX: H81.10 Benign paroxysmal vertigo, unspecified ear (principal); R73.09 Other abnormal glucose; K21.9 Gastro-esophageal reflux disease without esophagitis; F32.9 Major depressive disorder, single episode, unspecified; Z88.0 Allergy status to penicillin
CPT/HCPCS: 36415; 80053; 81001; 81025; 82962; 85025; 99284; A9270

== ENCOUNTER 2019-03-31 17:25 | Emergency (ER) | payer BC ==
[2019-03-31] MEDS ORDERED: Sodium Chloride 0.9% 1,000 ML IV ONE (17:41)
--- NOTE | 2019-03-31 17:45 | EDM.PDOC ---
ED HPI GENERAL MEDICAL PROBLEM - General Chief Complaint: Chest Pain Stated Complaint: CHEST PAIN/SHORTNESS OF BREATH Time Seen by Provider: 03/31/19 17:38 Source of Information: Reports: Patient History Limitations: Reports: No Limitations - History of Present Illness INITIAL COMMENTS - FREE TEXT/NARRATIVE: HISTORY AND PHYSICAL: History of present illness: Patient is a 28-year-old female who presents to the emergency room with complaints of midsternal chest pain and shortness of breath 3 weeks. She states initially she thought this was anxiety related as she does take Ativan as needed for panic attacks. But the Ativan has not been helping with the pain. Pain is not associated or alleviated with physical activity or rest. Patient denies any fever, chills, headache, change in vision, syncope or near syncope. Denies any abdominal pain, nausea, vomiting, diarrhea, constipation or dysuria. Has not noted any blood in urine or stool. Patient has been eating and drinking appropriately. Review of systems: As per history of present illness and below otherwise all systems reviewed and negative. Past medical history: As per history of present illness and as reviewed below otherwise noncontributory. Surgical history: As per history of present illness and as reviewed below otherwise noncontributory. Social history: See social history for further information Family history: As per history of present illness and as reviewed below otherwise noncontributory. Physical exam: General: Well developed and well nourished 28-year-old female. HEENT: Atraumatic, normocephalic, pupils equal and reactive bilaterally, negative for conjunctival pallor or scleral icterus, mucous membranes moist, TMs normal bilaterally, throat clear, neck supple, nontender, trachea midline. No drooling or trismus noted. No meningeal signs. No hot potato voice noted. Lungs: Clear to auscultation, breath sounds equal bilaterally, chest nontender. Not reproducible. Heart: S1S2, regular rate and rhythm without overt murmur Abdomen: Soft, nondistended, nontender. Negative for masses or hepatosplenomegaly. Negative for costovertebral tenderness. Pelvis: Stable nontender. Skin: Intact, warm, dry. No lesions or rashes noted. Extremities: Atraumatic, moves all extremities per self without difficulty or deficits, negative for cords or calf pain. Neurovascular unremarkable. Neuro: Awake, alert, oriented. Cranial nerves II through XII unremarkable. Cerebellum unremarkable. Motor and sensory unremarkable throughout. Exam nonfocal. Notes: All findings were shared with the patient. She states she has an appointment with her PCP next week. Supportive care measures were reviewed and discussed. Voices understanding and is agreeable to plan of care. Denies any further questions or concerns at this time. Diagnostics: CBC, CMP, Troponin, EKG, TSH, D.Dimer Therapeutics: IV fluids, Toradol, K-Dur Prescription: Levothyoxine 75mcg (#30) Impression: Hypothyroidism Hypokalemia Chest Pain Plan: 1. Labs were unremarkable with the exception of your thyroid. Please start taking the levothyroxine once daily. As we discussed this medication will likely need to be adjusted by her primary care provider. Please follow-up and have this reevaluated and have continued to management. 2. You may use Tylenol and/or ibuprofen as needed for pain management. You may continue to take all your home medications as directed. 3. Return to the ED as needed and as discussed. Definitive disposition and diagnosis as appropriate pending reevaluation and review of above. chest pain Pain Score (Numeric/FACES): 5 - Related Data Allergies Allergy/AdvReac Type Severity Reaction Status Date / Time Penicillins Allergy Other Verified 03/31/19 17:30 Home Meds: Home Meds FLUoxetine [PROzac] 40 mg PO DAILY 07/06/16 [History] Omeprazole 40 mg PO DAILY 07/06/16 [History] LORazepam [Ativan] 0.5 mg PO ASDIRECTED PRN 10/11/17 [History] Levothyroxine 75 mcg PO ACBREAKFAST #30 tab 03/31/19 [Rx] Past Medical History HEENT History: Reports: None Cardiovascular History: Reports: None Respiratory History: Reports: None Gastrointestinal History: Reports: GERD Genitourinary History: Reports: Renal Calculus 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 Musculoskeletal History: Reports: None Neurological History: Reports: Migraines Psychiatric History: Reports: Depression Endocrine/Metabolic History: Reports: Obesity/BMI 30+ Hematologic History: Reports: None Immunologic History: Reports: None Oncologic (Cancer) History: Reports: None Dermatologic History: Reports: None - Infectious Disease History Infectious Disease History: Reports: None - Past Surgical History Head Surgeries/Procedures: Reports: None HEENT Surgical History: Reports: Tonsillectomy Cardiovascular Surgical History: Reports: None Musculoskeletal Surgical History: Reports: None Social & Family History - Family History Family Medical History: Noncontributory Oncologic: Reports: Breast - Tobacco Use Smoking Status *Q: Never Smoker - Caffeine Use Caffeine Use: Reports: Coffee, Soda, Tea - Recreational Drug Use Recreational Drug Use: No ED ROS GENERAL - Review of Systems Review Of Systems: ROS reveals no pertinent complaints other than HPI. ED EXAM, GENERAL - Physical Exam Exam: See Below (See dictation) Course - Vital Signs Last Recorded V/S: Last Vital Signs Temp 96.5 F 03/31/19 17:31 Pulse 87 03/31/19 18:30 Resp 17 03/31/19 18:30 BP 135/79 03/31/19 18:30 Pulse Ox 99 03/31/19 18:30 - Orders/Labs/Meds Orders: Active Orders 24 hr Category Date Time Status EKG Documentation Completion [RC] STAT Care 03/31/19 17:38 Active CULTURE URINE [RM] Stat Lab 03/31/19 17:50 Received Labs: Laboratory Tests 03/31/19 03/31/19 03/31/19 Range/Units 17:35 17:45 17:45 WBC 9.84 (4.0-11.0) K/uL RBC 4.53 (4.30-5.90) M/uL Hgb 11.3 L (12.0-16.0) g/dL Hct 36.0 (36.0-46.0) % MCV 79.5 L (80.0-98.0) fL MCH 24.9 L (27.0-32.0) pg MCHC 31.4 (31.0-37.0) g/dL RDW Std Deviation 43.5 (28.0-62.0) fl RDW Coeff of Eda 15 (11.0-15.0) % Plt Count 401 H (150-400) K/uL MPV 8.70 (7.40-12.00) fL Neut % (Auto) 65.5 (48.0-80.0) % Lymph % (Auto) 25.8 (16.0-40.0) % [place] % (Auto) 7.9 (0.0-15.0) % Eos % (Auto) 0.5 (0.0-7.0) % Baso % (Auto) 0.3 (0.0-1.5) % Neut # (Auto) 6.4 H (1.4-5.7) K/uL Lymph # (Auto) 2.5 H (0.6-2.4) K/uL [place] # (Auto) 0.8 (0.0-0.8) K/uL Eos # (Auto) 0.1 (0.0-0.7) K/uL Baso # (Auto) 0.0 (0.0-0.1) K/uL Nucleated RBC % 0.0 /100WBC Nucleated RBCs # 0 K/uL D-Dimer, Quantitative 0.25 (0.0-0.50) mg/L FEU Sodium 136 (136-145) mmol/L Potassium 3.2 L (3.5-5.1) mmol/L Chloride 101 (98-107) mmol/L Carbon Dioxide 25.2 (21.0-32.0) mmol/L BUN 12 (7.0-18.0) mg/dL Creatinine 0.7 (0.6-1.0) mg/dL Est Cr Clr Drug Dosing 97.21 mL/min Estimated GFR (MDRD) > 60.0 ml/min Glucose 81 (74-106) mg/dL Calcium 9.4 (8.5-10.1) mg/dL Total Bilirubin 0.3 (0.2-1.0) mg/dL AST 11 L (15-37) IU/L ALT 22 (14-63) IU/L Alkaline Phosphatase 82 (46-116) U/L Total Protein 7.6 (6.4-8.2) g/dL Albumin 3.5 (3.4-5.0) g/dL Globulin 4.1 H (2.6-4.0) g/dL Albumin/Globulin Ratio 0.9 (0.9-1.6) TSH 3rd Generation 7.00 H (0.36-3.74) uIU/mL Urine Color Urine Appearance Urine pH (5.0-8.0) Ur Specific [place] (1.001-1.035) Urine Protein (NEGATIVE) mg/dL Urine Glucose (UA) (NEGATIVE) mg/dL Urine Ketones (NEGATIVE) mg/dL Urine Occult Blood (NEGATIVE) Urine Nitrite (NEGATIVE) Urine Bilirubin (NEGATIVE) Urine Urobilinogen (<2.0) EU/dL Ur Leukocyte Esterase (NEGATIVE) Urine RBC (0-2/HPF) Urine WBC (0-5/HPF) Ur Epithelial Cells (NONE-FEW) Urine Bacteria (NEGATIVE) Urine HCG, Qual (NEGATIVE) 03/31/19 03/31/19 Range/Units 17:50 17:50 WBC (4.0-11.0) K/uL RBC (4.30-5.90) M/uL Hgb (12.0-16.0) g/dL Hct (36.0-46.0) % MCV (80.0-98.0) fL MCH (27.0-32.0) pg MCHC (31.0-37.0) g/dL RDW Std Deviation (28.0-62.0) fl RDW Coeff of Eda (11.0-15.0) % Plt Count (150-400) K/uL MPV (7.40-12.00) fL Neut % (Auto) (48.0-80.0) % Lymph % (Auto) (16.0-40.0) % [place] % (Auto) (0.0-15.0) % Eos % (Auto) (0.0-7.0) % Baso % (Auto) (0.0-1.5) % Neut # (Auto) (1.4-5.7) K/uL Lymph # (Auto) (0.6-2.4) K/uL [place] # (Auto) (0.0-0.8) K/uL Eos # (Auto) (0.0-0.7) K/uL Baso # (Auto) (0.0-0.1) K/uL Nucleated RBC % /100WBC Nucleated RBCs # K/uL D-Dimer, Quantitative (0.0-0.50) mg/L FEU Sodium (136-145) mmol/L Potassium (3.5-5.1) mmol/L Chloride (98-107) mmol/L Carbon Dioxide (21.0-32.0) mmol/L BUN (7.0-18.0) mg/dL Creatinine (0.6-1.0) mg/dL Est Cr Clr Drug Dosing mL/min Estimated GFR (MDRD) ml/min Glucose (74-106) mg/dL Calcium (8.5-10.1) mg/dL Total Bilirubin (0.2-1.0) mg/dL AST (15-37) IU/L ALT (14-63) IU/L Alkaline Phosphatase (46-116) U/L Total Protein (6.4-8.2) g/dL Albumin (3.4-5.0) g/dL Globulin (2.6-4.0) g/dL Albumin/Globulin Ratio (0.9-1.6) TSH 3rd Generation (0.36-3.74) uIU/mL Urine Color YELLOW Urine Appearance SLT CLOUDY Urine pH 6.0 (5.0-8.0) Ur Specific [place] 1.020 (1.001-1.035) Urine Protein NEGATIVE (NEGATIVE) mg/dL Urine Glucose (UA) NEGATIVE (NEGATIVE) mg/dL Urine Ketones NEGATIVE (NEGATIVE) mg/dL Urine Occult Blood SMALL H (NEGATIVE) Urine Nitrite NEGATIVE (NEGATIVE) Urine Bilirubin NEGATIVE (NEGATIVE) Urine Urobilinogen 0.2 (<2.0) EU/dL Ur Leukocyte Esterase TRACE H (NEGATIVE) Urine RBC 0-2 (0-2/HPF) Urine WBC 0-2 (0-5/HPF) Ur Epithelial Cells FEW (NONE-FEW) Urine Bacteria FEW (NEGATIVE) Urine HCG, Qual NEGATIVE (NEGATIVE) Meds: Medications Discontinued Medications Generic Name Dose Route Start Last Admin Trade Name Freq PRN Reason Stop Dose Admin Sodium Chloride 1,000 mls @ 999 mls/hr 03/31/19 17:41 03/31/19 17:54 Normal Saline IV 03/31/19 18:41 999 mls/hr STAT ONE Administration Ketorolac Tromethamine 30 mg 03/31/19 17:50 03/31/19 17:57 Toradol IVPUSH 03/31/19 17:51 30 mg ONETIME ONE Administration Potassium Chloride 40 meq 03/31/19 18:39 Klor-Con M20 PO 03/31/19 18:40 ONETIME ONE Departure - Departure Time of Disposition: 18:37 Disposition: Home, Self-Care 01 Clinical Impression: Hypokalemia Hypothyroidism Qualifiers: Hypothyroidism type: unspecified Qualified Code(s): E03.9 - Hypothyroidism, unspecified Chest pain Qualifiers: Chest pain type: unspecified Qualified Code(s): R07.9 - Chest pain, unspecified Prescriptions: Levothyroxine 75 mcg PO ACBREAKFAST #30 tab Instructions: Hypothyroidism Referrals: PCP,Unobtain [Primary Care Provider] - Forms: ED Department Discharge Additional Instructions: The following information is given to patients seen in the emergency department who are being discharged to home. This information is to outline your options for follow-up care. We provide all patients seen in our emergency department with a follow-up referral. The need for follow-up, as well as the timing and circumstances, are variable depending upon the specifics of your emergency department visit. If you don't have a primary care physician on staff, we will provide you with a referral. We always advise you to contact your personal physician following an emergency department visit to inform them of the circumstance of the visit and for follow-up with them and/or the need for any referrals to a consulting specialist. The emergency department will also refer you to a specialist when appropriate. This referral assures that you have the opportunity for follow-up care with a specialist. All of these measure are taken in an effort to provide you with optimal care, which includes your follow-up. Under all circumstances we always encourage you to contact your private physician who remains a resource for coordinating your care. When calling for follow-up care, please make the office aware that this follow-up is from your recent emergency room visit. If for any reason you are refused follow-up, please contact the [facility] Emergency Department at and asked to speak to the emergency department charge nurse. [facility] [address] [place] [address] [id number] [address] [id number] 1. Labs were unremarkable with the exception of your thyroid. Please start taking the levothyroxine once daily. As we discussed this medication will likely need to be adjusted by your primary care provider. Please follow-up and have this reevaluated and have continued to management. 2. He may use Tylenol and/or ibuprofen as needed for pain management. You may continue to take all your home medications as directed. 3. Return to the ED as needed and as discussed. - My Orders Last 24 Hours: My Active Orders 03/31/19 17:38 EKG Documentation Completion [RC] STAT 03/31/19 17:50 CULTURE URINE [RM] Stat - Assessment/Plan Last 24 Hours: My Active Orders 03/31/19 17:38 EKG Documentation Completion [RC] STAT 03/31/19 17:50 CULTURE URINE [RM] Stat
[2019-03-31] MEDS ORDERED: Ketorolac 30 MG/ML SDV IVPUSH ONE (17:50)
[2019-03-31 18:16] LABS: CHLORIDE,CL 101 mmol/L (98-107); SODIUM,NA 136 mmol/L (136-145)
[2019-03-31] MEDS ORDERED: Potassium Chloride 20 MEQ Tab.ER PO ONE (18:39)
[2019-03-31 18:42] VITALS: BP 135/79
--- NOTE | 2019-03-31 18:43 | CR ---
INDICATION: Chest pain, shortness of breath, left upper extremity numbness with lightheaded and dizziniess TECHNIQUE: Chest radiograph 2 views COMPARISON: None FINDINGS: Moderate degradation of image quality noted due to body habitus. Mediastinum: The mediastinum is normal in appearance. The heart silhouette is normal in size and morphology. Lung: Both lungs are unremarkable in appearance. No sign of pleural effusion seen. No pneumothorax is identified. IMPRESSION: 1. No acute cardiopulmonary disease is seen. Dictated by: Arnold Wheeler MD @ 03/31/2019 18:42:29 (Electronically Signed)
== END 2019-03-31 19:02 | disposition home or self-care (01) ==
LOC: MW.ED 17:25
DX: R07.2 Precordial pain (principal); E87.6 Hypokalemia; E03.9 Hypothyroidism, unspecified; F32.9 Major depressive disorder, single episode, unspecified; Z88.0 Allergy status to penicillin; Z79.899 Other long term (current) drug therapy; Z87.442 Personal history of urinary calculi
CPT/HCPCS: 71046; 80053; 81001; 81025; 84443; 85025; 85379; 87086; 93005; 96361; 96374; 99285; A9270; J1885; J7040; 99284

== ENCOUNTER 2019-07-09 12:48 | Emergency (ER) | payer BC ==
--- NOTE | 2019-07-09 13:02 | EDM.PDOC ---
ED HPI GENERAL MEDICAL PROBLEM - General Chief Complaint: Headache Stated Complaint: BAD HEADACHE Time Seen by Provider: 07/09/19 12:49 Source of Information: Reports: Patient History Limitations: Reports: No Limitations - History of Present Illness INITIAL COMMENTS - FREE TEXT/NARRATIVE: HISTORY AND PHYSICAL: History of present illness: Patient is a 29-year-old female presents to the ED with complaint of headache x 10 days. She states she has been treated twice in the last month for a sinus infection. She states she is still having clear nasal drainage and congestion but has been having a throbbing pain in the back of her head and forehead for the past 10 days. She reports history of migraines but states they have never been this bad or last this long. She has Imitrex but has not taken at as she states it never works. She reports nausea, vomiting, photophobia. She states she has some improvement with tylenol but when this wears off she feels disoriented and can't think. She denies fevers, chills, chest pain, SOB. History of depression, hypertension, and GERD. Review of systems: As per history of present illness and below otherwise all systems reviewed and negative. Past medical history: As per history of present illness and as reviewed below otherwise noncontributory. Surgical history: As per history of present illness and as reviewed below otherwise noncontributory. Social history: No reported history of drug or alcohol abuse. Family history: As per history of present illness and as reviewed below otherwise noncontributory. Physical exam: General: Patient sitting comfortably in no acute distress and nontoxic appearing HEENT: TMs clear bilaterally. Atraumatic, normocephalic, pupils reactive, negative for conjunctival pallor or scleral icterus, mucous membranes moist, throat clear, neck supple, nontender, trachea midline. No meningeal signs. Pain to palpation of posterior occiput. Lungs: Clear to auscultation, breath sounds equal bilaterally, chest nontender. Heart: S1S2, regular, negative for clicks, rubs, or overt murmur. Abdomen: Soft, nondistended, nontender. Negative for masses or hepatosplenomegaly. Negative for costovertebral tenderness. No rigidity, rebound , guarding. Pelvis: Stable nontender. Genitourinary: Deferred. Rectal: Deferred. Spine: No no vertebral tenderness to palpation. Normal ROM of neck. Extremities: Atraumatic, negative for cords or calf pain. Neurovascular unremarkable. Neuro: Awake, alert, oriented. Cranial nerves II through XII unremarkable. Cerebellum unremarkable. Motor and sensory unremarkable throughout. Exam nonfocal. Notes: Diagnostics: Head CT Therapeutics: 1L NS IV 4mg Zofran IV 10mg Reglan IV 25mg Benadryl IV 30mg Toradol IV Prescriptions: Impression: Cephalgia Plan: Alternate tylenol and motrin as needed Follow up with primary care provider Return to ED as needed as discussed Definitive disposition and diagnosis as appropriate pending reevaluation and review of above. front of head and back Pain Score (Numeric/FACES): 8 - Related Data Allergies Allergy/AdvReac Type Severity Reaction Status Date / Time Penicillins Allergy Other Verified 07/09/19 12:57 Home Meds: Home Meds RX: Omeprazole 40 mg PO DAILY 07/06/16 [History] LORazepam [Ativan] 0.5 mg PO ASDIRECTED PRN 10/11/17 [History] RX: Propranolol [Inderal] 40 mg PO BID 07/09/19 [History] RX: SUMAtriptan [Imitrex] 50 mg PO ASDIRECTED 07/09/19 [History] Sertraline [Zoloft] 100 mg PO DAILY 07/09/19 [History] Past Medical History HEENT History: Reports: None Cardiovascular History: Reports: None Respiratory History: Reports: None Gastrointestinal History: Reports: GERD Genitourinary History: Reports: Renal Calculus 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: Reports: None Musculoskeletal History: Reports: None Neurological History: Reports: Migraines Psychiatric History: Reports: Depression Endocrine/Metabolic History: Reports: Obesity/BMI 30+ Hematologic History: Reports: None Immunologic History: Reports: None Oncologic (Cancer) History: Reports: None Dermatologic History: Reports: None - Infectious Disease History Infectious Disease History: Reports: None - Past Surgical History Head Surgeries/Procedures: Reports: None HEENT Surgical History: Reports: Tonsillectomy Cardiovascular Surgical History: Reports: None Musculoskeletal Surgical History: Reports: None Social & Family History - Family History Family Medical History: Noncontributory Oncologic: Reports: Breast - Caffeine Use Caffeine Use: Reports: Coffee, Soda, Tea ED ROS GENERAL - Review of Systems Review Of Systems: Comprehensive ROS is negative, except as noted in HPI. - Physical Exam Exam: See Below (see dictation) Course - Vital Signs Last Recorded V/S: Last Vital Signs Temp 97.9 F 07/09/19 14:49 Pulse 75 07/09/19 14:49 Resp 16 07/09/19 14:49 BP 110/47 L 07/09/19 14:49 Pulse Ox 97 07/09/19 14:49 - Orders/Labs/Meds Orders: Active Orders 24 hr Category Date Time Status Saline Lock Insert [OM.PC] Stat Oth 07/09/19 13:17 Ordered Labs: Laboratory Tests 07/09/19 Range/Units 13:05 Urine HCG, Qual NEGATIVE (NEGATIVE) Meds: Medications Discontinued Medications Generic Name Dose Route Start Last Admin Trade Name Freq PRN Reason Stop Dose Admin Diphenhydramine HCl 25 mg 07/09/19 13:17 07/09/19 13:23 Benadryl IVPUSH 07/09/19 13:18 25 mg ONETIME ONE Administration Sodium Chloride 1,000 mls @ 999 mls/hr 07/09/19 13:17 07/09/19 13:23 Normal Saline IV 07/09/19 14:17 999 mls/hr STAT ONE Administration Ketorolac Tromethamine 30 mg 07/09/19 14:27 07/09/19 14:30 Toradol IVPUSH 07/09/19 14:28 30 mg ONETIME ONE Administration Metoclopramide HCl 10 mg 07/09/19 13:17 07/09/19 13:23 Reglan IVPUSH 07/09/19 13:18 10 mg ONETIME ONE Administration Ondansetron HCl 4 mg 07/09/19 13:17 07/09/19 13:23 Zofran IVPUSH 07/09/19 13:18 4 mg ONETIME ONE Administration Sodium Chloride 10 ml 07/09/19 13:17 07/09/19 13:23 Saline Flush FLUSH 10 ml ASDIRECTED PRN Administration Keep Vein Open Sodium Chloride 2.5 ml 07/09/19 13:17 07/09/19 13:23 Saline Flush FLUSH 2.5 ml ASDIRECTED PRN Administration Keep Vein Open Sodium Chloride 10 ml 07/09/19 13:17 07/09/19 13:26 Saline Flush FLUSH 10 ml ASDIRECTED PRN Administration Keep Vein Open Sodium Chloride 2.5 ml 07/09/19 13:17 07/09/19 13:26 Saline Flush FLUSH 2.5 ml ASDIRECTED PRN Administration Keep Vein Open Departure - Departure Time of Disposition: 15:09 Disposition: Home, Self-Care 01 Condition: Good Clinical Impression: Cephalgia - Discharge Information Instructions: General Headache Without Cause Referrals: Alexandrea Melendrez NP [Primary Care Provider] - Forms: ED Department Discharge Additional Instructions: The following information is given to patients seen in the emergency department who are being discharged to home. This information is to outline your options for follow-up care. We provide all patients seen in our emergency department with a follow-up referral. The need for follow-up, as well as the timing and circumstances, are variable depending upon the specifics of your emergency department visit. If you don't have a primary care physician on staff, we will provide you with a referral. We always advise you to contact your personal physician following an emergency department visit to inform them of the circumstance of the visit and for follow-up with them and/or the need for any referrals to a consulting specialist. The emergency department will also refer you to a specialist when appropriate. This referral assures that you have the opportunity for follow-up care with a specialist. All of these measure are taken in an effort to provide you with optimal care, which includes your follow-up. Under all circumstances we always encourage you to contact your private physician who remains a resource for coordinating your care. When calling for follow-up care, please make the office aware that this follow-up is from your recent emergency room visit. If for any reason you are refused follow-up, please contact the [facility] Emergency Department at and asked to speak to the emergency department charge nurse. [facility] [address] [place] [id number] [address] Alternate tylenol and motrin as needed Follow up with primary care provider Return to ED as needed as discussed - My Orders Last 24 Hours: My Active Orders 07/09/19 13:17 Saline Lock Insert [OM.PC] Stat - Assessment/Plan Last 24 Hours: My Active Orders 07/09/19 13:17 Saline Lock Insert [OM.PC] Stat
[2019-07-09] MEDS ORDERED: Sodium Chloride 0.9% 10 ML Syringe FLUSH PRN ×2 (13:17)
[2019-07-09] MEDS ORDERED: Sodium Chloride 0.9% 1,000 ML IV ONE (13:17)
[2019-07-09] MEDS ORDERED: diphenhydrAMINE 50 MG/ML SDV IVPUSH ONE (13:17)
[2019-07-09] MEDS ORDERED: Metoclopramide 10 MG/2 ML SDV IVPUSH ONE (13:17)
[2019-07-09] MEDS ORDERED: Sodium Chloride 0.9% 2.5 ML Syringe FLUSH PRN ×2 (13:17)
[2019-07-09] MEDS ORDERED: Ondansetron 4 MG/2 ML SDV IVPUSH ONE (13:17)
--- NOTE | 2019-07-09 14:22 | CT ---
INDICATION: Migraines for 1 and half weeks TECHNIQUE: CT head without contrast. COMPARISON: None FINDINGS: CSF spaces: Within normal limits for age. Brain parenchyma: The lugo-white differentiation is normal. No sign of mass, hemorrhage, or midline shift. Skull base and calvarium: Probable retention cyst involving the floor of the left maxillary sinus. The visualized orbits are grossly unremarkable. No skull fractures. IMPRESSION: No gross intracranial abnormalities. Probable retention cysts involving the floor of the left maxillary sinus. Dictated by Andrea Gonzalez MD @ 07/09/2019 2:20:36 PM Please note that all CT scans at this facility use dose modulation, iterative reconstruction, and/or weight-based dosing when appropriate to reduce radiation dose to as low as reasonably achievable. Dictated by: Andrea Gonzalez MD @ 07/09/2019 14:20:44 (Electronically Signed)
[2019-07-09] MEDS ORDERED: Ketorolac 30 MG/ML SDV IVPUSH ONE (14:27)
[2019-07-09 14:51] VITALS: BP 110/47; PULSE 75
== END 2019-07-09 14:54 | disposition home or self-care (01) ==
LOC: MW.ED 12:48
DX: R51 Headache (principal); E66.9 Obesity, unspecified; Z68.43 Body mass index [BMI] 50.0-59.9, adult; Z88.0 Allergy status to penicillin
CPT/HCPCS: 70450; 81025; 96361; 96374; 96375; 99284; J1200; J1885; J2405; J2765; J7030

== ENCOUNTER 2021-08-31 01:13 | Emergency (ER) | payer BC, OTHER ==
[2021-08-31] MEDS ORDERED: Ketorolac 30 MG/ML SDV IVPUSH ONE (02:27)
[2021-08-31] MEDS ORDERED: Sodium Chloride 0.9% 1,000 ML IV ONE (02:27)
[2021-08-31 05:10] LABS: BLOOD UREA NITROGEN,BUN 14 mg/dL (7.0-18.0); CARBON DIOXIDE,CO2 27.2 mmol/L (21.0-32.0); CHLORIDE,CL 102 mmol/L (98-107); GLUCOSE RANDOM 120 mg/dL (74-106); POTASSIUM,K 4.1 mmol/L (3.5-5.1); SODIUM,NA 139 mmol/L (136-145)
[2021-08-31 05:27] VITALS: BP 136/80; PULSE 91
== END 2021-08-31 05:46 | disposition home or self-care (01) ==
LOC: MW.ED 01:13
DX: N39.0 Urinary tract infection, site not specified (principal); R31.9 Hematuria, unspecified; E66.9 Obesity, unspecified; Z68.43 Body mass index [BMI] 50.0-59.9, adult; Z88.0 Allergy status to penicillin; Z79.899 Other long term (current) drug therapy; Z72.0 Tobacco use
CPT/HCPCS: 36415; 74176; 80053; 81001; 81025; 85025; 96374; 99284; J1885; J7030

== ENCOUNTER 2022-10-22 14:18 | Emergency (ER) | payer BC ==
[2022-10-22] MEDS ORDERED: Acetaminophen 500 MG Tab PO STA (16:32)
[2022-10-22 17:23] LABS: CARBON DIOXIDE,CO2 27.9 mmol/L (21.0-32.0); POTASSIUM,K 3.2 mmol/L (3.5-5.1)
[2022-10-22 17:29] LABS: CORONAVIRUS COVID-19 NAA NEGATIVE (NEGATIVE); INFLUENZA A NAA NEGATIVE (NEGATIVE); INFLUENZA B NAA NEGATIVE (NEGATIVE); RESPIRATORY SYNCYTIAL VIR NAA NEGATIVE (NEGATIVE)
[2022-10-22 18:21] VITALS: BP 130/81; PULSE 95
== END 2022-10-22 18:21 | disposition home or self-care (01) ==
LOC: MW.ED 14:18
DX: J32.9 Chronic sinusitis, unspecified (principal); K21.9 Gastro-esophageal reflux disease without esophagitis; E66.9 Obesity, unspecified; Z68.43 Body mass index [BMI] 50.0-59.9, adult; Z88.0 Allergy status to penicillin; Z88.1 Allergy status to other antibiotic agents; Z79.899 Other long term (current) drug therapy; Z20.822 Contact with and (suspected) exposure to COVID-19
CPT/HCPCS: 0241U; 36415; 80053; 85025; 86308; 99284; A9270; 99283

== ENCOUNTER 2022-10-23 15:30 | Emergency (ER) | payer BC ==
[2022-10-23 17:00] LABS: BLOOD UREA NITROGEN,BUN 7 mg/dL (7.0-18.0); CARBON DIOXIDE,CO2 26.4 mmol/L (21.0-32.0); CHLORIDE,CL 102 mmol/L (98-107); GLUCOSE RANDOM 98 mg/dL (74-106); POTASSIUM,K 3.4 mmol/L (3.5-5.1); SODIUM,NA 138 mmol/L (136-145)
[2022-10-23 17:02] LABS: ESTIMATED GFR 121 mL/min (>60)
[2022-10-23] MEDS ORDERED: Sodium Chloride 0.9% 1,000 ML IV ONE (17:07)
[2022-10-23] MEDS ORDERED: Ondansetron 4 MG/2 ML SDV IVPUSH ONE (17:08)
[2022-10-23] MEDS ORDERED: Ketorolac 30 MG/ML SDV IVPUSH ONE (17:08)
[2022-10-23] MEDS ORDERED: LORazepam 2 MG/ML SDV IVPUSH ONE (17:09)
[2022-10-23] MEDS ORDERED: Ondansetron 4 MG Tab.DIS PO ONE (19:34)
[2022-10-23 19:35] VITALS: BP 128/80; PULSE 76
== END 2022-10-23 19:39 | disposition home or self-care (01) ==
LOC: MW.ED 15:30
DX: G44.209 Tension-type headache, unspecified, not intractable (principal); K21.9 Gastro-esophageal reflux disease without esophagitis; E11.9 Type 2 diabetes mellitus without complications; E66.9 Obesity, unspecified; Z68.43 Body mass index [BMI] 50.0-59.9, adult; Z88.0 Allergy status to penicillin; Z88.1 Allergy status to other antibiotic agents; Z79.899 Other long term (current) drug therapy; Z79.84 Long term (current) use of oral hypoglycemic drugs
CPT/HCPCS: 36415; 70450; 80053; 81001; 84703; 85025; 96361; 96374; 96375; 99284; A9270; J1885; J2060; J2405; J7030

== ENCOUNTER 2023-09-30 10:25 | Emergency (ER) | payer BC ==
[2023-09-30] MEDS: Ondansetron 4 MG/2 ML SDV IVPUSH ONE (11:43)
[2023-09-30] MEDS: Sodium Chloride 0.9% 1,000 ML IV ONE (11:43)
[2023-09-30 11:58] LABS: BASOPHILS ABSOLUTE AUTO 0.04 K/uL (0.00-0.20); BASOPHILS PERCENT AUTO 0.4 % (0.0-1.0); EOSINOPHILS ABSOLUTE AUTO 0.39 K/uL (0.00-0.45); EOSINOPHILS PERCENT AUTO 4.3 % (0.0-6.0); HEMATOCRIT 37.7 % (37.0-47.0); HEMOGLOBIN 11.6 g/dL (12.0-16.0); IMMATURE GRAN ABSOLUTE AUTO 0.03 K/uL (0.00-0.05); IMMATURE GRAN PERCENT AUTO 0.3 % (0.0-0.4); LYMPHOCYTES ABSOLUTE AUTO 1.82 K/uL (1.00-4.80); MEAN CORPUSCULAR HEMOGLOBIN 24.5 pg (28.0-32.0); MEAN CORPUSCULAR HGB CONC 30.8 g/dL (32.0-36.0); MEAN CORPUSCULAR VOLUME 79.7 fL (83.0-99.0); MEAN PLATELET VOLUME 8.7 fL (9.4-12.3); MONOCYTES PERCENT AUTO 5.5 % (0.0-8.0); NEUTROPHILS ABSOLUTE AUTO 6.31 K/uL (1.80-7.70); NEUTROPHILS PERCENT AUTO 69.5 % (41.0-71.0); PLATELET COUNT,PLT 362 K/uL (150-400); RED BLOOD CELL COUNT 4.73 M/uL (4.10-5.30); WHITE BLOOD CELL COUNT,WBC 9.09 K/uL (3.9-11.3)
[2023-09-30 12:35] LABS: ALBUMIN 3.9 g/dL (3.4-5.0); BILIRUBIN TOTAL 0.3 mg/dL (0.2-1.0); CALCIUM 9.3 mg/dL (8.5-10.1); CARBON DIOXIDE,CO2 25.5 mmol/L (21.0-32.0); CREATININE 0.7 mg/dL (0.6-1.0); EST CRCL DRUG DOSING (CG) 92.79 mL/min; POTASSIUM,K 4.3 mmol/L (3.5-5.1); PROTEIN TOTAL,TP 7.9 g/dL (6.4-8.2)
[2023-09-30] MEDS: Ketorolac 30 MG/ML SDV IVPUSH ONE (13:31)
[2023-09-30 14:09] LABS: APPEARANCE,URINE CLEAR; BILIRUBIN,URINE NEGATIVE (NEGATIVE); GLUCOSE,URINE NEGATIVE (NEGATIVE); KETONES,URINE NEGATIVE (NEGATIVE); LEUKOCYTE ESTERASE,URINE NEGATIVE (NEGATIVE); NITRITE,URINE NEGATIVE (NEGATIVE); OCCULT BLOOD,URINE NEGATIVE (NEGATIVE); PROTEIN,URINE NEGATIVE (NEGATIVE); UROBILINOGEN,URINE 0.2 EU/dL (<2.0)
[2023-09-30 14:10] LABS: COLOR,URINE DARK YELLOW
[2023-09-30 15:10] VITALS: BP 98/53; PULSE 83
== END 2023-09-30 15:10 | disposition home or self-care (01) ==
LOC: MW.ED 10:25
DX: N20.0 Calculus of kidney (principal); K21.9 Gastro-esophageal reflux disease without esophagitis; E11.9 Type 2 diabetes mellitus without complications; E66.9 Obesity, unspecified; Z68.43 Body mass index [BMI] 50.0-59.9, adult; Z79.84 Long term (current) use of oral hypoglycemic drugs; Z79.899 Other long term (current) drug therapy; Z88.0 Allergy status to penicillin; Z88.8 Allergy status to other drugs, medicaments and biological substances
CPT/HCPCS: 36415; 74176; 80053; 81003; 81025; 83690; 85025; 96361; 96374; 96375; 99284; J1885; J2405; J7030

== ENCOUNTER 2024-05-03 11:34 | Emergency (ER) | payer BC ==
[2024-05-03] MEDS: Acetaminophen/HYDROcodone 325-5 MG Tab PO ONE (12:03)
[2024-05-03 13:57] VITALS: BP 126/72; PULSE 93
== END 2024-05-03 13:44 | disposition home or self-care (01) ==
LOC: MW.ED 11:34
DX: S63.502A Unspecified sprain of left wrist, initial encounter (principal); E11.9 Type 2 diabetes mellitus without complications; E66.9 Obesity, unspecified; Z79.51 Long term (current) use of inhaled steroids; Z79.899 Other long term (current) drug therapy; Z88.0 Allergy status to penicillin; Z88.1 Allergy status to other antibiotic agents; Z68.42 Body mass index [BMI] 45.0-49.9, adult; X58.XXXA Exposure to other specified factors, initial encounter
CPT/HCPCS: 73090; 73130; 99283; A9270